=== PATIENT | male | born 1930 | race African-American/Black ===

== ENCOUNTER 2018-04-01 09:24 | Emergency (ER) | payer OTHER ==
[~2018-04-01] VITALS: Ht 175.3 cm; Wt 77.1 kg
[~2018-04-01 09:24] MED LIST: AMIODARONE HCL200 MG; CEFADROXIL500 MG PO; CELEBREX100 MG PO; COUMADIN2 MG; CUMADIN PO; FINASTERIDE5 MG; MEDROL4 MG PO; NORVASC5 MG PO; ORPH100T PO; OXYC1TAB9 PO; PROTONIX40 MG; SKELAXIN800 MG PO; SYNTHROID100 MCG; TAMS0.4C; ZYRTEC10 MG PO
[2018-04-01] MEDS ORDERED: VYTORIN 10-401 EACH (09:42)
[2018-04-01] MEDS ORDERED: SYNTHROID125 MCG (09:42)
[2018-04-01] MEDS ORDERED: PROMETHAZINE W473 ML PO (15:24)
[2018-04-01] MEDS ORDERED: TESSALON PERLE100 MG PO (15:24)
== END 2018-04-01 16:24 | disposition home or self-care (01) ==
LOC: ER 09:24
DX: J40 Bronchitis, not specified as acute or chronic (principal); J11.1 Influenza due to unidentified influenza virus with other respiratory manifestations

== ENCOUNTER 2018-04-10 10:57 | Emergency (ER) | payer OTHER ==
[~2018-04-10] VITALS: Ht 188 cm; Wt 79.8 kg
[~2018-04-10 10:57] MED LIST changes: +PROMETHAZINE W473 ML PO; +SYNTHROID125 MCG; +TESSALON PERLE100 MG PO; +VYTORIN 10-401 EACH
== END 2018-04-10 13:39 | disposition home or self-care (01) ==
LOC: ER 10:57
DX: M54.31 Sciatica, right side (principal); M25.551 Pain in right hip